=== PATIENT | female | born 1960 | race Caucasian/White ===

== ENCOUNTER → 2017-06-04 | Outpatient (CLI) | payer BC ==
[~2017-06-04] MED LIST: ALEVE 220MG220 MG PO; BYSTOLIC10 MG PO; COZAAR 25MG25 MG/TAB; FELDENE10 MG PO; MULTIPLE VITAMI1 CAP PO; OSTEO-BI-FLEX 21 TAB PO; PRILOSEC10 MG PO
== END ==
LOC: MC.RAD 11:05
DX: Z12.31 Encounter for screening mammogram for malignant neoplasm of breast (principal)

== ENCOUNTER → 2017-06-05 | Outpatient (CLI) | payer BC | LOC: COL.CARD 05-28 10:30 | DX: F98.4 Stereotyped movement disorders (principal); G25.9 Extrapyramidal and movement disorder, unspecified ==

== ENCOUNTER 2018-05-18 08:49 | Day surgery (SDC) | payer BC ==
[~2018-05-18] VITALS: Ht 165.1 cm; Wt 118.0 kg
[2018-05-18] MEDS ORDERED: HYGROTON 2525 MG/TAB PO (09:29)
[2018-05-18] MEDS ORDERED: COZAAR 50MG50 MG/TAB PO (09:29)
[2018-05-18] MEDS ORDERED: CYMBALTA 60MG60 MG PO (09:30)
[2018-05-18] MEDS ORDERED: MOBIC15 MG PO (09:30)
[2018-05-18] MEDS ORDERED: VITAMIND3 5000 (09:31)
[2018-05-18] MEDS ORDERED: ASPIRIN 81M81 MG/TA2 PO (09:32)
[2018-05-18] MEDS ORDERED: VITAMIN C500 MG PO (09:32)
[2018-05-18] MEDS ORDERED: OSCAL 500 TAB500 MG PO (09:33)
[2018-05-18] MEDS ORDERED: FISH OIL 500 M1 EAC1 PO (09:33)
[2018-05-18 09:57] VITALS: BP 145/86; PULSE 85; TEMP 98.3
[2018-05-18 11:30] VITALS: BP 157/72; PULSE 80
[2018-05-18 11:45] VITALS: BP 150/79; PULSE 75
[2018-05-18 12:00] VITALS: BP 135/73; PULSE 77
== END 2018-05-18 12:30 | disposition home or self-care (01) ==
LOC: SDCO 08:49
DX: Z12.11 Encounter for screening for malignant neoplasm of colon (principal); D12.2 Benign neoplasm of ascending colon; D12.4 Benign neoplasm of descending colon; K51.40 Inflammatory polyps of colon without complications; K64.0 First degree hemorrhoids; I10 Essential (primary) hypertension; E78.00 Pure hypercholesterolemia, unspecified; Z88.6 Allergy status to analgesic agent
CPT/HCPCS: J2250; J3010; J7030

== ENCOUNTER → 2019-01-28 | Outpatient (CLI) | payer BC ==
[~2019-01-28] MED LIST changes: +ASPIRIN 81M81 MG/TA2 PO; +COZAAR 50MG50 MG/TAB PO; +CYMBALTA 60MG60 MG PO; +FISH OIL 500 M1 EAC1 PO; +HYGROTON 2525 MG/TAB PO; +MOBIC15 MG PO; +OSCAL 500 TAB500 MG PO; +VITAMIN C500 MG PO; +VITAMIND3 5000
== END ==
LOC: MC.RAD 08:41
DX: Z12.31 Encounter for screening mammogram for malignant neoplasm of breast (principal)

== ENCOUNTER 2020-02-07 07:56 | Day surgery (SDC) | payer BC ==
[~2020-02-07] VITALS: Ht 165.1 cm; Wt 115.6 kg
[2020-02-07 08:24] VITALS: BP 153/93; PULSE 85; TEMP 98.6
[2020-02-07] MEDS ORDERED: FISH OIL 1000MG1 CAP PO (08:34)
--- NOTE | 2020-02-07 08:43 | NUR ---
TO RM AT 0805- CALL LIGHT IN REACH WILL CALL DAUGHTER JOSUÉ FOR RIDE HOME
[2020-02-07 09:55] VITALS: BP 134/81; PULSE 74; TEMP 97.7
--- NOTE | 2020-02-07 09:55 | NUR ---
TO BAY 4 PER CART FROM ENDOSCOPY. ALERT ORIENTED X3, TALKING TO STAFF. AMBULATED TO RECLINER AND TOLERATED WELL.
[2020-02-07 10:00] VITALS: BP 135/73; PULSE 83
--- NOTE | 2020-02-07 10:10 | NUR ---
RECEIVED GODFREY AND LARA.
--- NOTE | 2020-02-07 10:15 | NUR ---
DR GUEVARA INTO TALK WITH PATIENT.
[2020-02-07 10:30] VITALS: BP 150/90; PULSE 79
--- NOTE | 2020-02-07 10:30 | NUR ---
PATIENT WANTING TO GO HOME. ATTEMPTING TO DRESS SELF BEFORE IV'S OUT. DISCONTINUED IV AND INT- CATHETER INTACT. RECEIVED DISCHARGE INSTRUCTIONS AND VERBALIZED UNDERSTANDING. PATIENT FINISHED GETTING DRESSED.
--- NOTE | 2020-02-07 10:46 | NUR ---
DISCHARGED PER WC BY NURSING STAFF TO PRIVATE CAR IN CARE OF DAUGHTER JOSUÉ.
== END 2020-02-07 10:53 | disposition home or self-care (01) ==
LOC: SDCO 07:56
DX: Z12.11 Encounter for screening for malignant neoplasm of colon (principal); D12.2 Benign neoplasm of ascending colon; K64.0 First degree hemorrhoids; I10 Essential (primary) hypertension; E78.5 Hyperlipidemia, unspecified; Z79.82 Long term (current) use of aspirin; Z79.899 Other long term (current) drug therapy; Z88.8 Allergy status to other drugs, medicaments and biological substances
CPT/HCPCS: J2250; J2405; J3010; J7030

== ENCOUNTER 2022-01-12 04:51 | Emergency (ER) | payer BC ==
[~2022-01-12] VITALS: Ht 162.6 cm; Wt 113.6 kg
[~2022-01-12 04:51] MED LIST changes: +FISH OIL 1000MG1 CAP PO
[2022-01-12] MEDS ORDERED: NEURONTIN300 MG/CAP PO (04:55)
[2022-01-12] MEDS ORDERED: PRIL40 PO (04:56)
[2022-01-12 05:22] LABS: COLLECTION METHOD CLEAN CATCH
[2022-01-12 05:26] LABS: BASO # 0.1 K/mm3 (0.0-0.2); BASO % 0.8 % (0.0-2.0); EOS # 0.3 K/mm3 (0.0-0.7); EOS % 2.5 % (0.0-4.0); GRAN # 6.6 K/mm3 (1.4-6.5); GRAN % 60.9 % (42.2-75.2); HEMATOCRIT 43.6 % (37.0-47.0); HEMOGLOBIN 14.6 g/dl (12.5-16.0); LYMPH # 3.2 K/mm3 (1.2-3.4); LYMPH % 29.2 % (20.0-51.0); MEAN CELL VOLUME 87 fl (80.0-100.0); MEAN CORPUSCULAR HEMOGLOBIN 29 pg (27-31); MEAN CORPUSCULAR HGB CONC 34 g/dl (33.0-37.0); MEAN PLATELET VOLUME 10.6 fl (7.4-10.4); MONO # 0.6 K/mm3 (0.1-0.6); MONO % 5.9 % (1.7-9.3); PLATELET COUNT 264 K/mm3 (130-400); RED BLOOD COUNT 5.03 M/mm3 (4.10-5.30); REDCELL DISTRIBUTION WIDTH-CV 12.1 % (11.5-14.5)
[2022-01-12 05:34] LABS: PH 5 (5-8); SQUAMOUS EPITHELIAL 0-2 /hpf (0-10); URINE APPEARANCE Hazy (CLEAR/HAZY); URINE BACTERIA Rare /hpf (NONE SEEN); URINE BILIRUBIN Negative (NEGATIVE); URINE BLOOD 3+ (NEGATIVE); URINE COLOR Yellow (YELLOW); URINE GLUCOSE 1+ (NEGATIVE); URINE KETONE Negative (NEGATIVE); URINE LEUKOCYTE ESTERASE Negative (NEGATIVE); URINE NITRATE Negative (NEGATIVE); URINE PROTEIN(semi-quant) Negative (NEGATIVE); URINE RBC >50 /hpf (0-2); URINE UROBILINOGEN Negative (NEGATIVE)
[2022-01-12 05:51] LABS: BILIRUBIN,TOTAL 0.4 mg/dL (0.2-1.2); CALCIUM 9.4 mg/dL (8.4-10.2); CREATININE, serum 1.23 mg/dL (0.57-1.11); TOTAL PROTEIN 7.2 gm/dL (6.2-8.1)
[2022-01-12] MEDS ORDERED: ROXICODONE 55 MG/TAB PO (06:30)
[2022-01-12] MEDS ORDERED: ZOFRAN ODT4 MG PO (06:30)
[2022-01-12 06:51] VITALS: BP 141/83; PULSE 83; TEMP 97.7
== END 2022-01-12 06:49 | disposition home or self-care (01) ==
LOC: COL.ER 04:51
PROVIDERS: Student in an Organized Health Care Education/Training Program
DX: N13.2 Hydronephrosis with renal and ureteral calculous obstruction (principal); R93.89 Abnormal findings on diagnostic imaging of other specified body structures; Z98.890 Other specified postprocedural states; Z88.6 Allergy status to analgesic agent
CPT/HCPCS: J2270; J2405; Q9967

== ENCOUNTER 2024-03-22 08:19 | Day surgery (SDC) | payer BC ==
[2024-03-22] VITALS (11 sets, daily range): BP systolic 96–127; BP diastolic 50–76; PULSE 66–73; TEMP 98.7
[~2024-03-22] VITALS: Ht 162.6 cm; Wt 104.6 kg
[~2024-03-22 08:19] MED LIST changes: -COZAAR 50MG50 MG/TAB PO; +COZAAR100 MG PO; +NEURONTIN300 MG/CAP PO; +PERCOCET 325 MG1 TA2 PO; +PRIL40 PO; +ROXICODONE 55 MG/TAB PO; +ZOFRAN ODT4 MG PO
[2024-03-22] MEDS ORDERED: 1/2 NS 1,000 ML IV SCH (08:45)
[2024-03-22] MEDS ORDERED: NORVASC 5MG5 MG/TAB PO (08:53)
[2024-03-22 08:58] LABS: HEMATOCRIT 42.6 % (37.0-47.0); HEMOGLOBIN 14.5 g/dl (12.5-16.0); MEAN CELL VOLUME 86 fl (80.0-100.0); MEAN CORPUSCULAR HEMOGLOBIN 29 pg (27-31); MEAN CORPUSCULAR HGB CONC 34 g/dl (33.0-37.0); MEAN PLATELET VOLUME 11.1 fl (7.4-10.4); PLATELET COUNT 273 K/mm3 (130-400); RED BLOOD COUNT 4.98 M/mm3 (4.10-5.30); REDCELL DISTRIBUTION WIDTH-CV 12.4 % (11.5-14.5)
[2024-03-22] MEDS ORDERED: MOUNJARO5 MG/0.5 M SQ (08:58)
[2024-03-22 09:18] LABS: PARTIAL THROMBOPLASTIN TIME 30.9 SECONDS (26.0-37.0)
[2024-03-22 09:23] LABS: CALCIUM 9.3 mg/dL (8.4-10.2); CREATININE, serum 1.02 mg/dL (0.57-1.11); POTASSIUM 3.4 mEq/L (3.5-4.5)
[2024-03-22] MEDS ORDERED: Midazolam 2 MG/2 ML VIAL IV SCH (10:56)
[2024-03-22] MEDS ORDERED: fentaNYL 50 MCG/ML 2 ML VIAL IV SCH (11:01)
[2024-03-22] MEDS ORDERED: Nitroglycerin 100 MCG/ML (Cath Lab) 10 ML VIAL IA SCH (11:03)
[2024-03-22] MEDS ORDERED: Verapamil 2.5 MG/ML 2 ML VIAL IA SCH (11:09)
[2024-03-22] MEDS ORDERED: Heparin 1,000 UNITS/ML 10 ML Multi-Dose VIAL IA SCH (11:10)
[2024-03-22] MEDS ORDERED: Iohexol 350 - 100 ML VIAL INCOR ONE (11:19)
[2024-03-22] MEDS ORDERED: Heparin 1,000 UNITS/ML 10 ML Multi-Dose VIAL IV SCH (11:19)
[2024-03-22] MEDS ORDERED: Acetaminophen 500 MG TAB PO PRN (11:30)
--- NOTE | 2024-03-22 11:38 | NUR ---
Michelle is transferred back to express unit after LHC with DR. Alvarado. She is awake and alert, pwd with reg and unlabored respirations. TR band to rt wrist, cms intact distal. no evidence of bleeding. BS report and handoff of care to Abdoulaye DIEGO/
--- NOTE | 2024-03-22 14:50 | NUR ---
Dc instructions reviewed with pt and . Both express understanding. Air was removed from TR band in 2 ml increments with no bleeding or complication. Site dressed with folded 2x2 gauze and bandaid. 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 Was assisted up to restroom x1 with standby assist and steady gait. She ate meal tray. IV is DC'd, site wrapped with coban. She is assisted out to 's car by wheelchair with belongings.
== END 2024-03-22 14:50 | disposition home or self-care (01) ==
LOC: COL.CAR 08:19
PROVIDERS: Internal Medicine Cardiovascular Disease
DX: I25.10 Atherosclerotic heart disease of native coronary artery without angina pectoris (principal); I49.3 Ventricular premature depolarization
CPT/HCPCS: C1769; J1644; J2250; J3010; Q9967